=== PATIENT | female | born 1950 | race Caucasian/White ===

== ENCOUNTER 2022-07-09 08:29 | Outpatient (CLI) | payer MEDICARE, SELFPAY ==
[2022-07-09 10:47] LABS: T4 Thyroxine 5.36 ug/dL (5.53-11.0)
[2022-07-09 10:57] LABS: Free T4 Free Thyroxine 0.65 ng/mL (0.78-2.19); Vitamin D 25 Hydroxy 29.5 ng/mL
[2022-07-09 11:00] LABS: Total Triiodothyronine (T3) 1.08 NG/ML (0.97-1.69)
[2022-07-13 04:40] LABS: Triiodothyronine T3 Free 2.8 pg/mL (2.3-4.2)
== END 2022-07-09 08:30 | disposition home or self-care (01) ==
PROVIDERS: Visit Provider Internal Medicine Endocrinology, Diabetes & Metabolism
DX: E04.9 Nontoxic goiter, unspecified (principal); R76.8 Other specified abnormal immunological findings in serum; R79.89 Other specified abnormal findings of blood chemistry; M85.80 Other specified disorders of bone density and structure, unspecified site
CPT/HCPCS: 36415; 82306; 84436; 84439; 84443; 84480; 84481